=== PATIENT | male | born 1965 | race Caucasian/White ===

== ENCOUNTER 2019-12-30 15:57 | Outpatient (CLI) | payer OTHER, SELFPAY ==
--- NOTE | ~2019-12-30 | US_ITS ---
EXAMINATION: US venous doppler [facility] DATE: 12/30/2019 16:29 INDICATION: Left calf pain. TECHNIQUE: Grayscale ultrasound images without and with compression and Doppler ultrasound images of the left lower extremity veins were obtained. COMPARISON: None. FINDINGS: The visualized portions of left common femoral vein, profunda (deep) femoral vein, femoral vein, popl iteal vein, peroneal veins, posterior tibial veins, and greater saphenous vein outflow are patent. IMPRESSION: 1. No deep venous thrombosis. Reviewed, dictated and finalized at location A.
== END 2019-12-30 15:58 | disposition home or self-care (01) ==
PROVIDERS: PCP Family Medicine; Visit Provider Family Medicine
DX: M79.662 Pain in left lower leg (principal)
CPT/HCPCS: 93971

== ENCOUNTER 2020-07-02 17:34 | Outpatient (CLI) | payer OTHER, SELFPAY | END 2020-07-02 17:35 | disposition home or self-care (01) | LOC: ANHCOVIDVC 17:34 | PROVIDERS: PCP Family Medicine | DX: Z23 Encounter for immunization (principal) | CPT/HCPCS: 0001A; 91300 ==

== ENCOUNTER 2020-07-23 17:24 | Outpatient (CLI) | payer OTHER, SELFPAY | END 2020-07-23 17:25 | disposition home or self-care (01) | LOC: ANHCOVIDVC 17:24 | PROVIDERS: PCP Family Medicine | DX: Z23 Encounter for immunization (principal) | CPT/HCPCS: 0002A; 91300 ==

== ENCOUNTER 2025-02-03 20:45 | Emergency (ER) | payer OTHER, SELFPAY ==
--- NOTE | ~2025-02-03 | CT_ITS ---
EXAMINATION: CT abdomen pelvis w con DATE: 02/04/2025 00:09 INDICATION: Abdominal pain. Diarrhea. TECHNIQUE: Computed tomography (CT) of the abdomen and pelvis was performed with 100 mL Omnipaque 350 intravenous contrast. Automated exposure control and iterative reconstruction technique were employed. The dose-length product was 1136.08 mGy-cm. COMPARISON: None. FINDINGS: The visualized portions of the lung bases demonstrate mild atelectasis. A calcified left lung nodule and calcified paraesophageal lymph node are consistent with old granulomatous disease. No pleural effusion. The heart size is normal. There are coronary artery calcifications. No pericardial e ffusion. There is a small sliding hiatal hernia. There is a 2.9 cm cyst in the liver. There is a gallstone in the gallbladder, which is distended. The spleen and pancreas are normal. There are masses in the adrenal glands measuring up to 1.7 cm on the right measuring soft tissue attenuation. There are cysts in the kidneys measuring up to 1.6 cm on the right. The prostate is moderately enlarged. There is diverticulosis of the colon without evidence of diverticulitis. There is liquid stool in the colon correlating with the symptom of diarrhea. The appendix is normal. There are no dilated loops of small bowel. There are no pathologically enlarged lymph nodes. There is no free intraperitoneal fluid. There is mild thoracic and lumbar spondylosis. IMPRESSION: 1. Dilated loops of small bowel, consistent with adynamic ileus. 2. Cholelithiasis. Gallbladder distention may be secondary to fasting or acute cholecystitis. Correlate with physical exam. 3. Small sliding hiatal hernia. Reviewed, dictated and finalized at location E.
--- OUTSIDE RECORDS SUMMARY | 2025-02-03 20:47 | XMS_ITS | Encounter Summary ---
Author Organization [facility] Healthcare Address [address] [place] [id number] Care Team Providers Care Line Maintenance Supervisor Name Role Phone Drew Winslow MD Primary Care Provider [phone] Luca De Oliveira OD Unavailable [phone] Encounter Details Date Type Department Care Team (Latest Contact Info) Description 02/02/2025 Results Follow-Up [facility] Gastroenterology at [address] [place] [address] Yann Johnson MD [address] [place] [address] [address] [place] [address] Surgical pathology Social History Tobacco Use Types Packs/Day Years Used Date Smoking Tobacco: Never Cigarettes Smokeless Tobacco: Never Alcohol Use Standard Drinks/Week Comments Yes 0 (1 standard drink = 0.6 oz pur e alcohol) PHQ-2 Answer Date Recorded PHQ-2 Total Score (If total score is 3 or more points, staff should administer the PHQ-9) 0 11/06/2024 AUDIT-C Answer Date Recorded Q1: How often do you have a drink containing alc ohol? Monthly or less 01/30/2025 Q2: How many drinks containi ng alcohol do you have on a typical day when you are drinking? 1 or 2 01/30/2025 Q3: How often do you have si x or more drinks on one occasion? Never 01/30/2025 Personal Safety Answer Date Recorded Have you ever been in or are you currently in a harmful physical or emotional relationship or is someone making you feel afraid or unsafe? Denies 01/30/2025 Sex and Gender Information Value Date Recorded Sex Assigned at Not on file Legal Sex Male 7:45 PM CDT Gender Identity Male 02/15/2022 8:38 PM CDT Sexual Orientation Not on file documented as of this encounter Plan of Treatment Not on file documented as of this encounter Visit Diagnoses Not on filedocumented in this encounter Care Teams Line Maintenance Supervisor Relationship Specialty Start Date End Date Drew Winslow MD [address] [facility] [address] [place] [address] PCP - General Family Medicine 02/21/22 Luca [place] [address] Optometry 02/21/22 Tani Schwarz Plastic Surgery 02/21/22 documented as of this encounter
--- OUTSIDE RECORDS SUMMARY | 2025-02-03 20:47 | XMS_ITS | Clinical Summary ---
Author Organization [address] Address [address] [place] [id number] Care Team Providers Care Rn Imcu Name Role Phone Drew Winslow MD Primary Care Provider [phone] Luca De Oliveira OD Unavailable [phone] Allergies Active Allergy Reactions Criticality Noted Date Comments Diphenoxylate-Atropine Hives,Redness Medium 05/25/2020 Metformin Diarrhea Medium 11/22/2023 Xfncplvzq-Rx-Ri-Acetaminophen Hives,Redness Medium Medications rvwnscro20-jxlp-Xh folate-algal 27 mg iron-1.13 mg-581.92 mg capsule Take by mouth Active losartan (COZAAR) 100 mg tabletIndications: Hypertension associated with diabetes (HCC) Take 1 tablet (100 mg total) by mouth daily 90 tablet 3 05/16/19 25 026 Active Additional Information Patient taking differently:100 mg oralNightly, Reported on 01/27/2025 icosapent ethyL (Vascepa) 1 gram capsuleIndications :DM type 2 with diabetic mixed hyperlipidemia (HCC) Take 2 capsules (2 g total) by mouth 2 (two) times a day 360 capsule 3 08/14/19 25 026 Active sildenafiL, pulm.hypertension, (REVATIO) 20 mg tablet Take 1 tablet (20 mg total) by mouth daily PRN for difficulties with function 30 tablet 3 08/19/19 25 Active tirzepatide (Mounjaro) 10 mg/0.5 mL pen injector injection Inject 0.5 mL (10 mg total) under the skin every 7 days 6 mL 2 10/01/19 25 Active atorvastatin (LIPITOR) 20 mg tabletIndications: DM type 2 with diabetic mixed hyperlipidemia (HCC) TAKE 1 TABLET(20 MG) BY MOUTH DAILY 90 tablet 1 11/11/19 25 Active amLODIPine (NORVASC) 10 mg tabletIndications: Hypertension associated with diabetes (HCC) TAKE 1 TABLET(10 MG) BY MOUTH DAILY 90 tablet 1 11/11/19 25 Active Jardiance 10 mg tabletIndications: Hypertension associated with diabetes (HCC) TAKE 1 TABLET(10 MG) BY MOUTH DAILY 90 tablet 3 11/26/19 25 Active bisacodyl EC (DULCOLAX EC) 5 mg EC tabletIndications: constipation Take 2 tablets (10 mg total) by mouth daily 4 tablet 11/15/19 25 025 Discontin ued(Stop Taking at Discharge ) ondansetron ODT (ZOFRAN-ODT) 4 mg disintegrating tabletIndications: Prevention of Post-Operative Nausea and Vomiting Please take 1 tablet prn 30 mins before drinking Golytely. 2 tablet 11/15/19 025 Discontin ued(Stop Taking at Discharge ) Active Problems Problem Noted Date Diagnosed Date Colon cancer screening 11/14/2024 Class 1 obesity due to exces s calories without serious comorbidity with body mass index (BMI) of 34.0 to 34.9 in adult 05/16/2024 Assessment & Plan (05/16/2024 9:18 AM BSA/AML COMPLIANCE OFFICER): BMI Follow-up includes: nutrition counseling, exercise counseling, and education provided. Class 1 obesity with serious comorbidity and body mass index (BMI) of 34.0 to 34.9 in adult 03/12/2024 Assessment & Plan (03/12/2024 7:17 PM BSA/AML COMPLIANCE OFFICER): - ADA/heart healthy diet - aim to walk at least 30 min daily DM type 2 with diabetic mixed hyperlipidemia 03/2023 Assessment & Plan (02/10/2023 1:45 PM CDT): A1c increased to 6.8% Will hold off on med adjustment, but strongly encouraging more vigilance with dietary practices Continuing metformin XR Continuing Vascepa, lipitor Morbid (severe) obesity due to excess calories 1 Assessment & Plan (11/25/2023 1:46 PM CDT): BMI Follow-up includes: nutrition counseling, exercise counseling, and education provided. Assessment & Plan (02/08/2023 8:42 AM CDT): BMI Follow-up includes: nutrition counseling, exercise counseling, and education provided. Establishing care with new doctor, encounter for 02/21/2022 Assessment & Plan (02/21/2022 9:35 AM CDT): A(n) initial well visit to establish care has been performed today. Felipa Rebollar is not up to date on screening tests. He is in need of Diabetic eye exam, Diabetic foot exam, Prostate screening, Colon cancer screening and Diabetic kidney disease screening- ordered. He is not up to date on needed preventative vaccinations; He is in need of Tdap/Td, Influenza and Zoster. Refills sent Labs ordered for 6 mos out (HMV) Continuing current regimen Will get results on colonoscopy (2016, 2019) Flu shot today May get Zoster vaccination; up to date on covid-19 Type 2 diabetes mellitus wit hout complication, without long-term current use of insulin 07/20/2020 Assessment & Plan (03/12/2024 8:37 AM BSA/AML COMPLIANCE OFFICER): - chronic, HgA1c 7.1, slightly increased from prior, goal < 7 - continue Januvia 50 mg daily, jardiance 10 mg daily - discussed increasing Januvia or jardiance; however, pt desires to attempt better dietary control at this time and re-evaluate at next OV; states may discuss starting mounjaro (stopping Januvia) with Dr. Winslow in the future - eGFR >90, check uACR with upcoming labs - UTD dilated eye exam - monofilament exam today- intake protective peripheral sensation - flu vaccine today - declined PCV20 Hypertension associated with diabetes 05/25/2020 Assessment & Plan (03/12/2024 8:29 AM BSA/AML COMPLIANCE OFFICER): - chronic, controlled at goal of < 140/90 - continue losartan 100 mg + amlodipine 10 mg daily Assessment & Plan (01/30/2024 9:30 AM CDT): BP well controlled in office today. Pt has been taking his BP before or a few minutes after he takes his medication. Advised to take it 1-2 hours after taking medication, and send us a home log in one week. Continue current regimen for now as sx seem to be improving, unless headaches and BP continue to be a problem or worsen. Advised increased vigilance with diet and exercise. Assessment & Plan (05/15/2023 10:55 AM BSA/AML COMPLIANCE OFFICER): Blood Pressure Follow-up: Lifestyle modifications education provided on sodium reduction, increase physical activity, reduce alcohol consumption, and weight reduction. Continue current regimen Advised increased vigilance with diet, aim for 30 grams of carbohydrates per meal as limit recommend following exercise regimen with goal of 30 mins a day 5 days a week of light to mod cardio Assessment & Plan (02/10/2023 1:46 PM CDT): BP is acceptable Blood Pressure Follow-up: Lifestyle modifications education provided on sodium reduction, increase physical activity, reduce alcohol consumption, and weight reduction. Continuing losartan, amlodipine Assessment & Plan (08/12/2022 12:18 PM CDT): BP is mildly elevated; advising continuing DASH, improving lifestyle modification Continue current regimen A1c is improved to 6.2% Vascepa trial for triglycerides; cut back on saturated fat intake as well Will consider Glp-1 if control suffers Mixed hyperlipidemia 05/25/2020 Assessment & Plan (03/12/2024 8:41 AM BSA/AML COMPLIANCE OFFICER): - LDL 105, goal < 70 - continue atorvastatin 20 mg nightly - triglycerides at goal, HDL mildly decreased- continue vascepa 2 g BID - high ASCVD risk; discussed increasing statin or adding zetia; pt prefers to attempt better dietary control over the next few months and reevaluate The 10-year ASCVD risk score (Darron PAEZ, et al., 2019) is: 16.3% Values used to calculate the score: Age: 58 years Sex: Male Is Non- : No Diabetic: Yes Tobacco smoker: No Systolic Blood Pressure: 130 mmHg Is BP treated: Yes HDL Cholesterol: 39 mg/dL Total Cholesterol: 166 mg/dL Seborrheic keratosis 05/25/2020 Encounters Date Type Department Care Team Description 02/02/2025 Results Follow-Up [facility] Gastroenterology at [address] [phone] Yann Johnson MD Surgical pathology 01/30/2025 7:15 AM CDT - 01/30/2025 7:30 AM CDT Surgery [facility] [address] [place] [id number] Yann Johsnon MD COLON REMOVAL SNARE 01/30/2025 7:15 AM CDT Anesthesia Event [facility] [address] [place] [phone] Radha Sarkar MD 01/30/2025 5:48 AM CDT - 01/30/2025 8:40 AM CDT Hospital Encounter [facility] [address] [place] [phone] Yann Johnson MD Colon cancer screening Discharge Disposition: Discharge to home or self care 11/14/2024 Orders Only [facility] Gastroenterology at [address] [phone] Yann Johnson MD Colon cancer screening (Primary Dx) 11/06/2024 11:00 AM CDT Office Visit [facility] Primary Care at [place] [phone] Drew Winslow MD DM type 2 with diabetic mixed hyperlipidemia (HCC) (Primary Dx); Hypertension associated with diabetes (HCC); Screening for prostate cancer; Colon cancer screening; Need for vaccination 11/03/2024 Results Follow-Up [facility] Primary Care at [address] [phone] Drew Winslow MD CBC with auto differential, Comprehensive metabolic panel, Hemoglobin A1c, Additional followed-up results: 3 from Last 3 Months Immunizations Immunization Administration Dates Next Due Influenza, Quadrivalent, Spl it, Preservative Free, Intramuscular 02/08/2023,02/21/2022,02/24/2021 Influenza, Trivalent, Preser vative Free, Intramuscular 03/12/2024 Pneumococcal Conjugate Pcv20 11/06/2024 Tdap 11/06/2024 ZOSTER Recombinant 11/16/2022,08/08/2022 Surgical History Surgery Date Site/Laterality Comments BASAL CELL CARCINOMA EXCISION face LASIK 1993 COLONOSCOPY Medical History Medical History Date Comments Hyperlipidemia Hypertension Diabetes mellitus Erectile dysfunction Basal cell carcinoma 01/30/2022 Cataract 2015 Type 2 diabetes mellitus Colon polyp Family History Medical History Relation Name Comments Hypertension Father Diabetes Father's Brother Elías Rebollar Diabetes Father's Sister Ayesha Rebollar Heart attack Maternal Grandfather Renny Anaya Heart disease Maternal Grandfather Renny Anaya Arthritis Mother Astrid Rebollar COPD Mother Astrid Rebollar Hyperlipidemia Mother Astrid Rebollar Hypertension Mother Astrid Rebollar Kidney disease Mother Astrid Rebollar Stroke Mother Astrid Rebollar Cancer Mother's Brother 1 Kike Jaclyn Diabetes Mother's Brother 1 Kike Jaclyn Heart attack Mother's Brother 1 Kike Jaclyn Heart disease Mother's Brother 1 Kike Jaclyn Cancer Mother's Brother 2 Mac Jaclyn Cancer Mother's Brother 3 Marv Jaclyn Diabetes Mother's Brother 3 Marv Jaclyn Heart attack Mother's Brother 3 Marv Jaclyn Heart disease Mother's Brother 3 Marv Jaclyn Stroke Mother's Brother 3 Marv Jaclyn Heart attack Paternal Grandfather Reinaldo Rebollar Diabetes Paternal Grandmother Shani Rebollar Stroke Paternal Grandmother Shani Rebollar Cancer Sister Maritza Rebollar Relation Name Status Comments Father Father's Brother Elías Rebollar Father's Sister Ayesha Rebollar Maternal Grandfather Renny Anaya Mother Astrid Rebollar Alive Mother's Brother 1 Kike Jaclyn Mother's Brother 2 Mac Jaclyn Mother's Brother 3 Marv Jaclyn Paternal Grandfather Somerset Rebollar Paternal Grandmother Shani Rebollar Sister Maritza Rebollar Social History Tobacco Use Types Packs/Day Years Used Date Smoking Tobacco: Never Cigarettes Smokeless Tobacco: Never Tobacco Cessation:Counseling Given: Not Answered Alcohol Use Standard Drinks/Week Comments Yes 0 [...] PM CDT Sexual Orientation Not on file Obstetrics History Last Filed Vital Signs Vital Sign Reading Time Taken Comments Blood Pressure 127/89 01/30/2025 8:05 AM CDT Pulse 80 01/30/2025 8:05 AM CDT Temperature 35.7 C (96.3 F) 01/30/2025 7:42 AM CDT Respiratory Rate 18 01/30/2025 8:05 AM CDT Oxygen Saturation 96% 01/30/2025 8:05 AM CDT Inhaled Oxygen Concentration - - Weight 105.7 kg (233 lb) 01/30/2025 6:18 AM CDT Height 188 cm (6' 2) 11/06/2024 10:53 AM CDT Body Mass Index 29.92 11/06/2024 10:53 AM CDT Plan of Treatment Health Maintenance Due Date Last Done Comments Regular Well Visit/Exam 18-64 02/21/2023 02/21/2022 Covid-19 Vaccine (2024- 6 season) 2024 01/25/2022, 03/16/2021, 07/23/2020, Additional history exists Influenza Vaccine (#1) 2024 , 02/08/2023, 02/21/2022, Additional history exists Foot Exam 03/12/2025 03/12/2024, 02/21/2022 Hemoglobin A1C 05/04/2025 11/01/2024, 04/2 05/2024, 05/16/2024, Additional history exists Prostate Cancer Screening-PSA 08/13/2025 08/14/2023, 08/03/2022 Albumin Creatinine Ratio, Urine 08/19/2025 , 05/09/2023 Lipid Panel 11/01/2025 11/01/2024, 04/30, 10/05/2023, Additional history exists eGFR 11/01/2025 11/01/2024, 04/30, 10/05/2023, Additional history exists Depression Screening 11/06/2025 11/06/2024, 08/21/2024, 05/16/2024, Additional history exists Dilated Eye Exam 12/06/2025 12/06/2024, 02/2024, 07/22/2022 Colon Cancer Screening-Colonoscopy 01/30/2030 01/30/2025, 02/28/2020, 01/12/2020 DTaP/Tdap/Td Vaccine (2 - Td or Tdap) 11/06/2034 11/06/2024 Zoster Vaccine Completed 11/16/2022, 08/08/2022 Hepatitis B Screening Completed 08/19/2024 Hepatitis C Screening Completed 08/19/2024 Pneumococcal vaccine <65 Completed 11/06/2024 Procedures Procedure Name Priority Date/Time Associated Diagnosis Comments SURGICAL PATHOLOGY Routine 01/30/2025 7: 24 AM CDT Colon cancer screening ENDO ADD ON COLON BIOPSY 01/30/2025 7:18 AM CDT Colon cancer screening COLON REMOVAL SNARE 01/30/2025 7 :18 AM CDT Colon cancer screening COLONOSCOPY 01/30/2025 7:10 AM CDT POCT GLUCOSE DEVICE Routine 01/30/2025 6 :51 AM CDT HM DIABETES EYE EXAM Routine 12/06/2024 12:02 PM CDT EGFR Routine 11/01/2024 8:18 AM CDT Hypertension associated with diabetes (HCC) HEMOGLOBIN A1C Routine 11/01/2024 8:18 AM CDT DM type 2 with diabetic mixed hyperlipidemia (HCC) Hypertension associated with diabetes (HCC) LIPID PANEL Routine 11/01/2024 8:18 AM CDT DM type 2 with diabetic mixed hyperlipidemia (HCC) HEPATITIS C ANTIBODY Routine 08/19/2024 8:01 AM CDT Encounter for hepatitis C screening test for low risk patient ALBUMIN CREATININE RATIO, URINE Routine 08/19/2024 8:01 AM CDT Hypertension associated with diabetes (HCC) DM type 2 with diabetic mixed hyperlipidemia (HCC) PSA SCREEN Routine 08/14/2023 8:26 AM CDT Screening for prostate cancer from Last 3 Months or Most Recently Relevant to Health Maintenance Results * Surgical pathology (01/30/2025 7:24 AM CDT) Tissue (Polyp(s), colon/colorectal, esophageal, gastric) 01/30/2025 7:24 AM CDT Tissue specimen (specimen) (Colon, Biopsy) 01/30/2025 7:26 AM CDT Tissue specimen (specimen) (Polyp(s), colon/colorectal, esophageal, gastric) 01/30/2025 7:27 AM CDT Tissue specimen (specimen) (Polyp(s), colon/colorectal, esophageal, gastric) 01/30/2025 7:30 AM CDT Tissue specimen (specimen) (Polyp(s), colon/colorectal, esophageal, gastric) 01/30/2025 7:35 AM CDT Narrative PATHOLOGY [facility] - 02/02/2025 2:47 PM CDT [facility] Department of Pathology [address] [place] [address] Note to Patients: This report may contain a detailed description of human tissue sent by a health care provider to the laboratory for pathologic evaluation. The content of this report is essential for diagnosis and may provide important critical findings. This information may be unfamiliar to patients to review without a medical professional present. It is advised that the patient review this report in the presence of a health care provider who can answer questions and explain the details. Final Report Patient Name: FELIPA REBOLLAR : 1965 (Age: 59) Gender: M Address: [address] [place] [address] Hospital #: [id number] Service: Gastro Location: Patient Type: [facility] OUTPATIENT Taken: 01/30/2025 Received: 01/30/2025 Accessioned: 01/30/2025 Reported: 02/02/2025 Physician(s): Cornelio Amaral M.D. Diagnosis: A. Colon, cecum, biopsy - No histopathologic abnormality with no polyp identified B. Colon, ascending, bioopsy - Tubular adenoma C. Colon, hepatic flexure, biopsy - Tubular adenoma D. Colon, transverse, biopsy - No histopathologic abnormality with no polyp identified E. Colon, sigmoid, biopsy - Tubular adenoma Angel Salgado M.D. Report Electronically Reviewed and Signed Out By Angel Salgado M.D. 02/02/2025 14:47:23 Specimen(s) Received: A: Cecal polyp x 2 hot snare B: Ascending colon polyp biopsy C: Hepatic flexure polyp hot snare D: Transverse colon polyp hot snare E: Sigmoid colon polyp hot snare Microscopic Description: Unless gross-only is specified, the final diagnosis for each specimen is based on a microscopic examination of each tissue sample. Clinical History: The patient is a 59-year-old man presenting for colon cancer screening. Operative procedure: Colonoscopy with biopsy. Gross Description Received in five formalin jars labeled with the patient's identifiers. A. Labeled cecal polyp x2 hot snare and consists of two palomo-red tissue fragments measuring 0.3 cm and 0.4 cm. Entirely submitted. Labeled A1. Jar 0. B. Labeled ascending colon polyp biopsy and consists of three palomo tissue fragments ranging from 0.2-0.3 cm. Entirely submitted. Labeled B1. Jar 0. C. Labeled hepatic flexure polyp hot snare and consists of four palomo-red tissue fragments ranging from 0.2-0.5 cm. Entirely submitted. Labeled C1. Jar 0. D. Labeled transverse colon polyp hot snare and consists of a 0.7 cm palomo-red tissue fragment. Bisected and entirely submitted. Labeled D1. Jar 0. E. Labeled sigmoid colon polyp hot snare and consists of three palomo-pink tissue fragments admixed with debris, ranging from 0.2-0.4 cm. Entirely submitted. Labeled E1. Jar 0. jjmhb/01/30/2025 10:58 [place], LEN (ASCP) Microscopic slide review and interpretation for this case was performed at [facility], Department of Surgical Pathology, [address] [facility] [place], [place] [id number], [place] [address] CLIA # [id number] us Yann Johnson MD LAB PATHOLOGY ORDERABLES Final R esult PATHOLOGY [facility] * Colonoscopy (01/30/2025 7:10 AM CDT) Anatomical Region Laterality Modality Other Narrative Procedure Note Yann Johnson MD - 01/30/2025 7:10 AM CDT [facility] Patient Name: Feliap Rebollar Procedure Date: 01/30/2025 7:10 AM Date of : 1965 Admit Type: Outpatient Age: 59 Gender: Male Attending MD: Yann Johnson M.D., Room: [facility] ENDOSCOPY ROOM 03 Note Status: Finalized Procedure: Colonoscopy Indications: Screening for colorectal malignant neoplasm Referring MD: Providers: Yann Johnson M.D. Medicines: Monitored Anesthesia Care Complications: No immediate complications. Estimated Blood Loss: Estimated blood loss: none. Procedure: Pre-Anesthesia Assessment: - Prior to the procedure, a History and Physicalwas performed, and patient medications and allergieswere reviewed. The risks and benefits of the procedureand the sedation options and risks were discussed withthe patient. All questions were answered and informed consent was obtained. Patient identification and proposed procedure were verified. After reviewingthe risks and benefits, the patient was deemed in satisfactory condition to undergo the procedure.The anesthesia plan was to use monitored anesthesiacare (MAC). Immediately prior to administration of medications, the patient was re-assessed foradequacy to receive sedatives. The heart rate, respiratory rate, oxygen saturations, blood pressure, adequacyof pulmonary ventilation, and response to care were monitored throughout the procedure. The physical status of the patient was re-assessed after the procedure. The benefits, risks and alternatives of theprocedure and sedation were discussed and informed consentwas obtained. All questions were answered. Please referto the signed informed consent document in the medical record. The scope was passed under direct vision.The Colonoscope was introduced through the anus and advanced to the cecum, identified by appendiceal orifice and ileocecal valve. The colonoscopy was performed without difficulty. The patient tolerated the procedure well. The quality of the bowel preparation was good. Scope withdrawal time was 15 minutes. Prep was administered in a split dose. Findings: The perianal and digital rectal examinations were normal. Two sessile polyps were found in the cecum. The polyps were 5 mm in size. These polyps were removed with a hot snare. Resection and retrieval were complete. A diminutive (1-3 mm) polyp was found in the ascending colon. Thepolyp was removed with a cold biopsy forceps. Resection and retrieval were complete. A 10 mm polyp was found in the hepatic flexure. The polyp wassessile. The polyp was removed with a hot snare. Resection and retrieval were complete. An 8 mm polyp was found in the transverse colon. The polyp wassessile. The polyp was removed with a hot snare. Resection and retrieval were complete. To prevent bleeding post-intervention, one hemostatic clipwas successfully placed. 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 There wasno bleeding at the end of the procedure. A 10 mm polyp was found in the sigmoid colon. The polyp was sessile.The polyp was removed with a hot snare. Resection and retrieval were complete. Scattered large-mouthed diverticula were found in the sigmoid colon, descending colon and transverse colon. Non-bleeding internal hemorrhoids were found during retroflexion. The hemorrhoids were small. The exam was otherwise without abnormality. Impression: - Two 5 mm polyps in the cecum, removed with a hot snare. Resected and retrieved. - One diminutive (1-3 mm) polyp in the ascending colon, removed with a cold biopsy forceps. Resected and retrieved. - One 10 mm polyp at the hepatic flexure, removedwith a hot snare. Resected and retrieved. - One 8 mm polyp in the transverse colon, removedwith a hot snare. Resected and retrieved. Clip wasplaced. 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 - One 10 mm polyp in the sigmoid colon, removedwith a hot snare. Resected and retrieved. - Diverticulosis in the sigmoid colon, in the descending colon and in the transverse colon. - Non-bleeding internal hemorrhoids. - The examination was otherwise normal. Recommendation: - Patient has a contact number available for emergencies. The signs and symptoms of potential delayed complications were discussed with thepatient. Return to normal activities tomorrow. Written discharge instructions were provided to thepatient. - High fiber diet. - Continue present medications. - Await pathology results. - Repeat colonoscopy in 3 years for surveillance. Yann Johnson M.D. Yann Johnson M.D. 01/30/2025 7:41:47 AM . Number of Addenda: 0 Note Initiated On: 01/30/2025 7:10 AM Recognized by the [employer] for promoting quality in endoscopy us Yann Johnson MD ENDOSCOPY PROCEDURES Final Resul t * POCT glucose (01/30/2025 6:51 AM CDT) Glucose, POC 107 70 - 199 mg/dL Blood 01/30/2025 6:51 AM CDT 01/30/2025 6:51 AM CDT us Yann Johnson MD LAB POCT ORDERABLES - DEVICE Fin al Result Performing Organization Address City/[facility]/ZIP Co de Phone Number [facility] [address] [place] [address] * (ABNORMAL) DIABETES EYE EXAM (12/06/2024 12:02 PM CDT) Michael Provider HEALTH MAINTENANCE Final Result * eGFR (11/01/2024 8:18 AM CDT) eGFR 86 >=60 mL/min/1. 73 m2 Comment: Interpretive Data Reference Interval Normal >/= 90 mL/min/1.73m2 Mildly decreased* 60 - 89 mL/min/1.73m2 Mildly to moderately decreased 45 - 59 mL/min/1.73m2 Moderately to severely decreased 30 - 44 mL/min/1.73m2 Severely decreased 15 - 29 mL/min/1.73m2 Kidney Failure < 15 mL/min/1.73m2 *Relative to young adult level Estimated glomerular filtration rate is determined by the 2020 CKD-EPI equation recommended by the National Kid[employer] (A Unifying Approach to GFR Estimation: Recommendations of the NKF-ASK Task Force on Reassessing the Inclusion of Race in Diagnosing Kidney Disease, JASN 2020). The CKD-EPI equation should not be used for patients with unstable renal function and has not been validated in children and those over 70. Current interpretive data was last reviewed 2021. Testing performed by: [facility], [address] [place] [address]., [id number] Blood 11/01/2024 8:18 AM CDT 11/01/2024 9:58 AM CDT Drew Winslow MD LAB BLOOD ORDERABLES Final Result [facility] Department [place] [address] * (ABNORMAL) Hemoglobin A1c (11/01/2024 8:18 AM CDT) Hgb A1C 6.3(H) 4.0 - 5.6 % Comment:Testing performed by : [address] [address] Estimated Average Glucose 134 mg/dL [facility] Comment: The ADA recommends reporting an estimated Average Glucose (eAG) with all Hemoglobin A1c results using the equation derived from a study of 507 normal and diabetic adults. Minority populations were underrepresented and children were not included. (Diabetes Care 31:4159-6895, 2008). The eAG is not equivalent to a fasting glucose. Testing performed by: [address] [address] Blood 11/01/2024 8:18 AM CDT 11/01/2024 9:58 AM CDT Drew Winslow MD LAB BLOOD ORDERABLES Final Result [facility] [address] [facility] [place] [address] * (ABNORMAL) Lipid panel (11/01/2024 8:18 AM CDT) Cholesterol 129 30 - 199 mg/dL Comment: Interpretive Data Ages < or = 19 years Acceptable: <170 mg/dL Borderline high: 170-199 mg/dL High: >or= 200 mg/dL Ages > or = 20 years Desirable: <200 mg/dL Borderline high: 200-239 mg/dL High: >or= 240 mg/dL Literature References: 1. Expert Panel on Integrated Guidelines for Cardiovascular Health and Risk Reduction in Children and Adolescents. Pediatrics 2011;128:S213 2. NCEP Expert Panel. Circulation 2004;110:227 Current Interpretive Data was last revised on 2017. Testing performed by: [address] [address] Triglycerides 119 <=149 mg/dL YU CANO Comment: Interpretive Data Ages < or = 9 years Acceptable: <75 mg/dL Borderline high: 75-99 mg/dL High: >or= 100 mg/dL Ages 10 to 20 years Acceptable: <90 mg/dL Borderline high: 90-129 mg/dL High: >or= 130 mg/dL Ages > or = 20 years Desirable: <150 mg/dL Borderline high: 150-199 mg/dL High: 200-499 mg/dL Very high: >or= 499 mg/dL Literature References: 1. Expert Panel on Integrated Guidelines for Cardiovascular Health and Risk Reduction in Children and Adolescents. Pediatrics 2011;128:S213 2. NCEP Expert Panel. Circulation 2004;110:227 Current Interpretive Data was last revised on 2017. Testing performed by: [address] [address] HDL 38(L) >=40 mg/dL YU Comment: Interpretive Data Ages < or = 19 years Acceptable: >45 mg/dL Borderline low: 40-45 mg/dL Low: <40 mg/dL Ages > or = 20 years Desirable: >or= 60 mg/dL Low: <40 mg/dL Literature References: 1. Expert Panel on Integrated Guidelines for Cardiovascular Health and Risk Reduction in Children and Adolescents. Pediatrics 2011;128:S213 2. NCEP Expert Panel. Circulation 2004;110:227 Current Interpretive Data was last revised on 2017. Testing performed by: [facility], [address] [place] [address]., [address] LDL, calculated 69 <=129 mg/dL YU Comment: Interpretive Data Ages < or = 19 years Acceptable: <110 mg/dL Borderline high: 110-129 mg/dL High: >or= 130 mg/dL Ages > or = 20 years Optimal: <100 mg/dL Near optimal: 100-129 mg/dL Borderline high: 130-159 mg/dL High: >160 mg/dL Calculated using the Khang LDL-C estimating equation. This equation was implemented on 2023. Prior to this date LDL-C was estimated using the Friedewald equation. Literature References: 1. Expert Panel on Integrated Guidelines for Cardiovascular Health and Risk Reduction in Children and Adolescents. Pediatrics 2011;128:S213 2. NCEP Expert Panel. Circulation 2004;110:227 3. Khang Gupta et al. JACQUELINE Cardiol. 2019August 28;5(5):540-548. doi: 10.1001/[email or web address] Current Interpretive Data was last revised on 2023. Testing performed by: [address] [address] Non-HDL Cholesterol 91 mg/dL YU CANO Comment: Interpretive Data Ages < or = 19 years Acceptable: <120 mg/dL Borderline high: 120-144 mg/dL High: >145 mg/dL Ages > or = 20 years When triglycerides are >200 mg/dL, Non-HDL cholesterol is a secondary target of therapy with treatment goals that are 30 mg/dL greater than the LDL cholesterol target. Literature References: 1. Expert Panel on Integrated Guidelines for Cardiovascular Health and Risk Reduction in Children and Adolescents. Pediatrics 2011;128:S213 2. NCEP Expert Panel. Circulation 2004;110:227 Current Interpretive Data was last revised on 2017. Testing performed by: [address] [address] Chol/HDL ratio 3 YU Comment:Testing performed by : [address] [address] Blood 11/01/2024 8:18 AM CDT 11/01/2024 9:58 AM CDT us Drew Winslow MD LAB BLOOD ORDERABLES Final Result Performing Organization Address City/State/[facility] Co de Phone Number YU [address] [facility] Department [place] [address] * Hepatitis C antibody Blood (08/19/2024 8:01 AM CDT) Hep C Ab Nonreactive Nonreactive Comment: Interpretive Data Nonreactive: Antibodies to HCV not detected. Does NOT exclude the possibility of recent exposure to HCV. Equivocal: Equivocal for HCV antibodies. Supplemental molecular testing will be automatically performed to determine infection status in accordance with current CDC screening recommendations. Reactive: Positive for HCV antibodies. This may represent current or past HCV infection. Supplemental molecular testing will be automatically performed to determine current infection status in accordance with current CDC screening recommendations. Interpretive data was last revised on 2019. Blood 08/19/2024 8:01 AM CDT 08/19/2024 7:29 PM CDT Drew Winslow MD LAB MICROBIOLOGY - GENERAL ORDERABLES Final Result Performing Organization Address [facility] Co de Phone Number YU TEE [phone] [address] [facility] [place] [place] [address] * Albumin Creatinine Ratio, Urine (08/19/2024 8:01 AM CDT) Albumin Ur <12.0 mg/L Comment: Interpretive Data No reference range established. Current interpretive data was last revised 2018. Creatinine Ur 107.1 mg/dL YU Comment: Interpretive Data No reference range established. Current interpretive data was last revised 2018. Albumin Creatinine Ratio, Ur <11 1 - 29 mg/g YU Urine 08/19/2024 8:01 AM CDT 08/19/2024 7:29 PM CDT Drew Winslow MD LAB URINE ORDERABLES Final Result Performing Organization Address [facility] Co de Phone Number YU [phone] [address] [facility] [place] [address] [place] [address] * PSA screen (08/14/2023 8:26 AM CDT) PSA-Total 3.36 <=3.90 ng/mL Comment: Interpretive Data AGE SEX REFERENCE INTERVAL 0 minutes-150 years Female None 0 minutes-49 years Male None 50-59 years Male 0-3.90 60-69 years Male 0-5.40 70-79 years Male 0-6.20 80-150 years Male 0-6.20 The Chantelle PSA Total assay procedure was used. Results from different manufacturers or methods may not be comparable. Serial testing should be performed using the same method. Current interpretive data last revised 21. Blood 08/14/2023 8:26 AM CDT 08/14/2023 2:14 PM CDT us Drew Winslow MD LAB BLOOD ORDERABLES Final Result Performing Organization Address City/State/ZIP [facility] Phone Number YU [phone] [address] Department [place] [address] from Last 3 Months or Most Recently Relevant to Health Maintenance Insurance [facility] [employer] [facility] [employer] Care Teams Rn Imcu Relationship Specialty Start Date End Date Drew Winslow MD [address] [address] PCP - General Family Medicine 02/21/22 Luca De Oliveira OD [address] [place] [address] Optometry 02/21/22 Tani Schwarz Plastic Surgery 02/21/22
[2025-02-03 21:04] VITALS: BP 125/85; PULSE 109; RESP 20; TEMP 36.6; O2SAT 99
--- NOTE | 2025-02-03 22:41 | ED_ITS ---
HPI - Nausea/Vomiting/Diarrhea General Chief complaint: Nausea/Vomiting/Diarrhea Stated complaint: vomiting and diarrhea started today Time Seen by Provider: 02/03/25 22:31 Source: patient Mode of arrival: ambulatory Limitations: no limitations History of Present Illness HPI Narrative: This is a 59 year old male that presents to the ER for abdominal pain, diarrhea. Reports watery diarrhea, vomiting, abdominal pain. Ongoing since this morning. He is not able to keep anything down. Denies fevers. Reports recent colonoscopy 01/30. Related Data Allergies Allergy/AdvReac Type Severity Reaction Status Date / Time atropine (From Lomotil) Allergy Severe rash Verified 02/03/25 21:04 diphenoxylate (From Lomotil) Allergy Severe rash Verified 02/03/25 21:04 ALL PHEDS PSEUDOPHED Allergy Intermediate rash Uncoded 02/03/25 21:04 ATROPINE SULFATE Allergy Intermediate rash Uncoded 02/03/25 21:04 DIPHENOXYLATE HCL Allergy Unknown rash Uncoded 02/03/25 21:04 Review of Systems 2 Review of Systems: All systems reviewed & are unremarkable except as noted in HPI and below PMFSH Past Medical History Medical History (Updated 02/04/25 @ 02:43 by Mayra Whitlock PA-C) History of hyperlipidemia History of hypertension History of diabetes mellitus Exam 2 Narrative: GENERAL: Well-appearing, well-nourished, and in no acute distress. HEAD: Normocephalic, atraumatic. EYES: EOMI. CHEST: Clear to auscultation. No respiratory distress. No wheezes rales or rhonchi HEART: Regular rate and rhythm. No murmur heard. Normal peripheral pulses. ABDOMEN: Soft, nontender, nondistended, normal active bowel sounds. EXTREMITIES: Normal range of motion. No edema. SKIN: Warm, dry, no rash. NEURO: No focal deficits. Alert and oriented x3. PSYCH: Normal mood and affect Course Vital Signs Vital signs: Vital Signs Temperature 97.9 F 02/03/25 21:04 Pulse Rate 109 H 02/03/25 21:04 Respiratory Rate 20 02/03/25 21:04 Blood Pressure 125/85 02/03/25 21:04 Pulse Oximetry 99 02/03/25 21:04 Oxygen Delivery Room Air 02/03/25 21:04 Temperature 97.9 F 02/03/25 21:04 Pulse Rate 83 02/04/25 03:03 Respiratory Rate 14 02/04/25 03:03 Blood Pressure 125/88 02/04/25 03:03 Pulse Oximetry 95 02/04/25 03:03 Oxygen Delivery Room Air 02/03/25 21:04 MDM - Nausea/Vomiting/Diarrhea MDM Narrative Medical decision making narrative: Patient presents to the ER for abdominal pain, vomiting, diarrhea. Ongoing since this morning. He is afebrile and nontoxic appearing. Tachycardic upon arrival. This normalized with IV fluids. CBC with leukocytosis to 16.5. Metabolic panel with evidence of dehydration. Urine with white blood cells, also moderate squamous epithelial cells. Patient is not having any urinary symptoms. Likely contaminated catch. C diff is negative. Stool culture sent. CT abdomen and pelvis shows likely enteritis. Patient hydrated with 2 L of IV fluids. Metabolic panel with closure of gap. Patient reports feeling much better. Ready for discharge. Was given warnings to return to the ER Differential Diagnosis Differential diagnosis: Likely traveler's diarrhea, food poisoning, gastroenteritis, drug-induced nausea and vomiting and dehydration Lab Data Attestation: I reviewed the patient's lab results. 02/03/25 22:42 02/04/25 01:52 Labs: Lab Results 02/03/25 02/03/25 02/04/25 Range/Units 22:42 22:51 01:52 WBC 16.5 H (4.5-10.0) K/mm3 RBC 6.20 (4.6-6.20) M/mm3 Hgb 17.2 (14.0-18.0) g/dL Hct 50.9 (42.0-52.0) % MCV 82.1 (80-100) fl MCH 27.7 (26-34) pg MCHC 33.8 (32-36) g/dl RDW 12.3 (11.5-14.5) % Plt Count 289 (150-375) k/mm3 MPV 9.3 (7.4-10.4) fl Immature Gran % (Auto) 0.4 (0-0.5) % Neut % (Auto) 89.9 H (45.5-73.1) % Lymph % (Auto) 5.6 L (18.3-44.2) % Foster % (Auto) 3.6 (2.6-8.5) % Eos % (Auto) 0.1 (0-4.4) % Baso % (Auto) 0.4 (0.2-1.2) % Lymph # (Auto) 0.92 (0.9-3.2) K/mm3 Foster # (Auto) 0.6 (0.1-0.6) K/mm3 Eos # (Auto) 0.0 (0-0.3) K/mm3 Baso # (Auto) 0.1 (0.0-0.1) K/mm3 Abs Immat Gran (auto) 0.06 H (0.00-0.031) K/mm3 Absolute Neuts (auto) 14.8 H (1.3-6.7) K/mm3 Absolute Nucleated RBC 0.000 (0.0-0.012) K/mm3 Nucleated RBC % 0.0 (0.0-0.2) % Sodium 138 136 L (137-145) mmol/L Potassium 3.9 4.2 (3.4-5.0) mmol/L Chloride 105 103 (98-107) mmol/L Carbon Dioxide 15 L 22 (22-30) mmol/L Anion Gap 18 H 11 (4-12) mmol/L BUN 32 H 29 H (9-20) mg/dL Creatinine 1.53 H 1.20 (0.7-1.3) mg/dL Estim Creat Clear Calc 55 69 ml/min Estimated GFR 47 L > 60 (59 - ) Glucose 154 H 122 H (65-110) mg/dL Calcium 10.0 8.9 (8.4-10.2) mg/dL Total Bilirubin 1.4 H (0.2-1.3) mg/dL AST 31 (17-59) U/L ALT 40 (6-50) U/L Alkaline Phosphatase 84 (38-126) U/L Total Protein 9.3 H (6.3-8.2) g/dL Albumin 5.2 H (3.5-5.1) g/dL Lipase 204 (23-300) U/L Urine Color Dark yellow (Yellow) Urine Appearance Cloudy H (Clear) Urine pH 5.5 (5.0-9.0) Ur Specific [place] 1.038 H (1.001-1.035) Urine Protein 3+ H (Negative) mg/dL Urine Glucose (UA) 2+ H (Negative) mg/dL Urine Ketones 1+ H (Negative) mg/dL Ur Blood (Man) Negative (Negative) Urine Nitrate Negative (Negative) Urine Bilirubin 2+ H (Negative) Urine Urobilinogen 1.0 (<2.0) mg/dL Add Ur Microanalysis Reviewed Leukocyte Esterase Rfl Trace H (Negative) MICHELLE/UL Urine RBC 0-2 (0-2) /hpf Urine WBC 21-50 H (0-3) /hpf Ur Squamous Epith Cells Moderate (Few) /hpf Urine Bacteria None seen /hpf Urine Casts >20 Hyaline Casts Present (None) /lpf Urine Mucus Present /lpf C. difficile (PCR) Negative (NEGATIVE) Imaging Data Radiologist's impression: CT abdomen and pelvis: Fluid and air within the colon. Diverticula present. No significant inflammatory changes. Thickening of the wall as sigmoid colon, this may be due to under distention. Mildly distended loops of small bowel containing fluid and air. Nonspecific enteritis. Critical Care Time Critical Care Time Critical Care Time: No Discharge Plan Discharge Clinical Impression: Gastroenteritis, Dehydration Patient Disposition: Home Condition: Improved Instructions: Dehydration (ED), Gastroenteritis (ED) Additional Instructions: Return to the ER if you experience fever, worsening abdominal pain with nausea and vomiting, you are unable to keep down liquids or solids, or any other symptoms that are concerning to you Small, frequent meals. [place] diet. Remain well hydrated. Ondansetron as needed for nausea Follow up with primary care doctor Patient Language: Chinese Prescriptions: New ondansetron 4 mg tablet,disintegrating 4 mg PO Q8H PRN (Reason: nausea and vomiting) Qty: 10 0RF Follow-up/Referrals: UNKNOWN,DOCTOR [Non-Staff]
[2025-02-03 22:48] LABS: Hematocrit 50.9 % (42.0-52.0); Hemoglobin 17.2 g/dL (14.0-18.0); Immature Granulocyte Percent A 0.4 % (0-0.5); Lymphocytes Absolute Auto 0.92 K/mm3 (0.9-3.2); Mean Corpuscular HGB Conc 33.8 g/dl (32-36); Mean Corpuscular Hemoglobin 27.7 pg (26-34); Mean Corpuscular Volume 82.1 fl (80-100); Nucleated Red Blood Cells Absolute Auto 0.000 K/mm3 (0.0-0.012); Nucleated Red Blood Cells Perc 0.0 % (0.0-0.2); Platelet Count Result 289 k/mm3 (150-375); Red Blood Count 6.20 M/mm3 (4.6-6.20); White Blood Count 16.5 K/mm3 (4.5-10.0)
[2025-02-03] MEDS: LACTATED RINGERS 1,000 ML 999 ML IV CONT ×2 (22:49→23:17)
[2025-02-03] MEDS: FAMOTIDINE 20 MG/2 ML VIAL IV PUSH (22:49)
[2025-02-03] MEDS: ONDANSETRON INJ 4 MG/2 ML VIAL IV PUSH (22:49)
[2025-02-03 22:56] LABS: Add Urine Microscopic? YES; Appearance Urine Cloudy (Clear); Glucose Urine UA 2+ mg/dL (Negative); Leukocyte Esterase Ur Trace LEU/UL (Negative); Need Manual Microscopic Reviewed; Nitrate Urine Negative (Negative); Non Pathogenic Casts >20; Specific Grav Ur 1.038 (1.001-1.035)
[2025-02-03 22:57] LABS: Alanine Aminotransferase 40 U/L (6-50); Albumin Level 5.2 g/dL (3.5-5.1); Alkaline Phosphatase 84 U/L (38-126); Anion Gap 18 mmol/L (4-12); Aspartate Amino Transferase 31 U/L (17-59); Bilirubin,Total 1.4 mg/dL (0.2-1.3); Blood Urea Nitrogen 32 mg/dL (9-20); Calcium 10.0 mg/dL (8.4-10.2); Carbon Dioxide 15 mmol/L (22-30); Chloride 105 mmol/L (98-107); Estimated CRCL calculation 55 ml/min; Estimated Glomerular Filt Rate 47; Glucose 154 mg/dL (65-110); Lipase 204 U/L (23-300); Potassium 3.9 mmol/L (3.4-5.0); Sodium 138 mmol/L (137-145); Total Protein 9.3 g/dL (6.3-8.2)
--- NOTE | 2025-02-03 23:15 | PC.NURSE ---
This RN assumed care/report from Estelle BABCOCK.
[2025-02-03 23:47] LABS: Toxigenic C. Diff NEGATIVE (NEGATIVE)
[2025-02-04] VITALS (7 sets, daily range): BP systolic 123–138; BP diastolic 74–88; PULSE 83–98; RESP 13–17; O2SAT 91–96
[2025-02-04] MEDS: LOPERAMIDE HCL 2 MG CAPSULE 4 MG PO (01:47)
[2025-02-04 02:06] LABS: Anion Gap 11 mmol/L (4-12); Blood Urea Nitrogen 29 mg/dL (9-20); Calcium 8.9 mg/dL (8.4-10.2); Carbon Dioxide 22 mmol/L (22-30); Chloride 103 mmol/L (98-107); Estimated CRCL calculation 69 ml/min; Estimated Glomerular Filt Rate > 60; Glucose 122 mg/dL (65-110); Potassium 4.2 mmol/L (3.4-5.0); Sodium 136 mmol/L (137-145)
== END 2025-02-04 03:01 | disposition home or self-care (01) ==
PROVIDERS: Emergency Provider Physician Assistant; PCP Family Medicine
DX: K52.9 Noninfective gastroenteritis and colitis, unspecified (principal); E86.0 Dehydration; I10 Essential (primary) hypertension; E78.5 Hyperlipidemia, unspecified; E11.9 Type 2 diabetes mellitus without complications
CPT/HCPCS: 36415; 74177; 80048; 80053; 81001; 83690; 85025; 87045; 87046; 87427; 87493; 96361; 96374; 96375; 99284; A9270; J2405; J7120; Q9967